=== PATIENT | male | born 1985 | race Caucasian/White ===

== ENCOUNTER 2021-11-05 18:40 | Emergency (ER) | payer OTHER ==
[~2021-11-05] VITALS: Ht 170.2 cm; Wt 68.5 kg
--- NOTE | 2021-11-05 18:46 | NUR ---
TIMA GONZALEZ 11 FROM HOME,CALLED 911 AFTER SVT LASTED LONGER THAN USUAL,CONVERTED AFTER EMS GAVE 2ND DOSE OF ADENOSINE. PT ATTACHED TO MONITOR, VITALS WITHIN NORMAL LIMITS, NO RESP DISTRESS NOTED. WARM BLANKET PROVIDED FOR COMFORT. AWAITING MD ORDERS.
[2021-11-05 19:28] VITALS: BP 124/79
[2021-11-06] MEDS ORDERED: PROP10TA10 PO (23:20)
== END 2021-11-05 19:31 | disposition home or self-care (01) ==
LOC: ER 18:43
DX: I47.1 Supraventricular tachycardia (principal); Z60.2 Problems related to living alone

== ENCOUNTER 2021-11-06 20:31 | Emergency (ER) | payer OTHER ==
[~2021-11-06] VITALS: Ht 170.2 cm; Wt 68.0 kg
--- NOTE | 2021-11-06 20:35 | NUR ---
BIBS FOR "I HAVE SVT". W/ C/O LIGHTHEADEDNESS AND DIZZINESS WAS AT [facility] AND REC'D ADENOSIN. AMBULATORY, PLACED ON BED, AAOX4, ATTACHED TO MONITOR SVT GA-163, SATURATING AT 100%RA
--- NOTE | 2021-11-06 20:36 | NUR ---
AT BED SIDE
[2021-11-06] MEDS ORDERED: ADENOSINE 6 MG/2 ML VIAL ONE (20:40)
--- NOTE | 2021-11-06 20:45 | NUR ---
ADENOSINE 6MG RAPID IVP GIVEN- MONITOR SHOWS SVT NC-176. AT 20:50 ADENOSINE 12MG RAPID IVP GIVEN- MONITOR SHOWS CARDIOVERSION TO SINUS RHYTHYM NC-88, BP-140/91, O2 SATS- 100% WITH 2LIT VIA NC
--- NOTE | 2021-11-06 20:49 | NUR ---
L AMBER #20G S/L BLOOD COLLECTED AND SENT TO LAB
--- NOTE | 2021-11-06 20:50 | NUR ---
SWAB FOR COVID19 SENT TO LAB
[2021-11-06 21:14] LABS: BASOPHILS # (AUTO) 0.1 K/uL (0.0-0.2); BASOPHILS % (AUTO) 0.7 % (0.0-2.0); HEMATOCRIT 46 % (39-51); LYMPHOCYTES # (AUTO) 4.8 K/uL (0.8-4.8); MEAN CORPUSCULAR HGB CONC 35 g/dl (31.0-36.0); MEAN CORPUSCULAR VOLUME 93 fL (80-96); MONOCYTES # (AUTO) 0.7 K/uL (0.1-1.30); MONOCYTES % (AUTO) 7.6 % (2.0-12.0); NEUTROPHILS # (AUTO) 3.3 K/uL (1.8-8.9); NEUTROPHILS % (AUTO) 35.7 % (43.0-81.0); PLATELET COUNT (AUTO) 262 K/uL (150-450); RED BLOOD CELL COUNT(AUTO) 4.99 MIL/uL (4.5-6.0); WHITE BLOOD COUNT (AUTO) 9.2 K/uL (4.3-11.0)
--- NOTE | 2021-11-06 21:20 | NUR ---
CALLED [facility] AND SET UP CASE.
--- NOTE | 2021-11-06 21:23 | NUR ---
DR. LYON ON PHONE WITH [facility]
[2021-11-06 21:28] LABS: CALCIUM, SERUM 9.7 mg/dL (8.5-10.1); CARBON DIOXIDE 24 mmol/L (21-32); CHLORIDE 107 mmol/L (98-107); CREATININE 0.9 mg/dL (0.6-1.3); GLUCOSE 102 mg/dL (74-106); POTASSIUM 3.5 mmol/L (3.5-5.1); SODIUM SERUM 144 mmol/L (136-145); UREA NITROGEN, BLOOD 11 mg/dL (7-18)
--- NOTE | 2021-11-06 22:24 | NUR ---
[employer] AT PT'S BEDSIDE
[2021-11-06] MEDS ORDERED: ADENOSINE 6 MG/2 ML VIAL IVP ONE ×2 (22:30)
[2021-11-06] MEDS ORDERED: PROP10TA10 PO (23:20)
--- NOTE | 2021-11-06 23:33 | NUR ---
Patient discharged to home in stable condition. Written and verbal after care instructions given. Patient verbalizes understanding of instruction.IV removed. Catheter intact and site benign. Pressure and 4x4 applied to site. No bleeding noted.
[2021-11-06 23:38] VITALS: BP 121/85
== END 2021-11-06 23:36 | disposition home or self-care (01) ==
LOC: ER 20:36
DX: I47.1 Supraventricular tachycardia (principal); Z20.822 Contact with and (suspected) exposure to COVID-19; I45.10 Unspecified right bundle-branch block; R03.0 Elevated blood-pressure reading, without diagnosis of hypertension
CPT/HCPCS: 36415; 71045; 80048; 84443; 84484 ×2; 85025; 87426; 93005; 96374; 99291; C9803; J0153